=== PATIENT | female | born 1995 | race Caucasian/White ===

== ENCOUNTER 2018-12-06 22:39 | Inpatient (IN) | payer BC ==
[~2018-12-06] VITALS: Ht 157.5 cm; Wt 74.1 kg
--- NOTE | 2018-12-06 22:25 | NUR ---
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 PT TO ROOM, ORIENTED TO ROOM, CHANGED INTO GOWN. EFMX2 APPLIED, AMNIOSWAB PERFORMED AND NEGATIVE, SVE PERFORMED, VS OBTAINED.
[2018-12-06 22:45] VITALS: BP 119/67; PULSE 83; TEMP 98.4
[2018-12-06] MEDS ORDERED: TYLENOL 325MG325 MG PO (22:50)
[2018-12-06 23:22] VITALS: BP 119/67; PULSE 83; TEMP 98.4
--- NOTE | 2018-12-06 23:22 | NUR ---
MONITORING DC'D SO PT COULD AMBULATE THE UNIT.
[2018-12-07] VITALS (35 sets, daily range): BP systolic 93–149; BP diastolic 52–112; PULSE 72–131; TEMP 98–98.3
[2018-12-07 00:29] LABS: BASO % 0.2 % (0.0-2.0); GRAN # 10.7 (1.4-6.5); GRAN % 85.8 % (42.2-75.2); HEMOGLOBIN 11.6 g/dl (12.5-16.0); LYMPH # 0.9 (1.2-3.4); LYMPH % 7.5 % (20.0-51.0); MEAN CELL VOLUME 84 fl (80.0-100.0); MEAN CORPUSCULAR HEMOGLOBIN 28 pg (27.0-31.0); MEAN CORPUSCULAR HGB CONC 33 g/dl (33.0-37.0); MEAN PLATELET VOLUME 13.1 fl (7.4-10.4); MONO # 0.7 (0.1-0.6); MONO % 5.8 % (1.7-9.3); PLATELET COUNT 138 K/mm3 (130-400); REDCELL DISTRIBUTION WIDTH-CV 13.2 % (11.5-14.5)
[2018-12-07 00:31] LABS: HEMATOCRIT 35.2 % (37.0-47.0)
--- NOTE | 2018-12-07 00:45 | NUR ---
0036- Ana DOWNEY CRNA IN ROOM FOR EPIDURAL PLACEMENT 0037- PT SITTING AT SIDE OF BED FOR EPIDURAL PLACEMENT, PULSE OX AND BLOOD PRESSURE CUFF ON. TIME OUT PERFORMED. 0045- TEST DOSE GIVEN BY Ana DOWNEY CRNA. PT TOLERATED WELL. 0050- PT REPOSITIONED IN SEMIFOWLERS.
--- NOTE | 2018-12-07 05:47 | NUR ---
0540- SVE OF COMPLETE/+2 0547- PT PUSHING WITH THIS NURSE.
--- NOTE | 2018-12-07 06:26 | NUR ---
PRERNA RN IN ROOM TO ASSUME CARE OF PT. SPENCER FAJARDO BY THIS NURSE, 900MLS CLEAR YELLOW URINE OUT.
--- NOTE | 2018-12-07 09:33 | NUR ---
0635 CARE ASSUMED FROM Kayden SETH RN. PT PUSHING WELL WITH EACH CONTRACTION AND GOOD DESCENT NOTED. 0640 DR GONZÁLES CALLED AND ASKED TO COME FOR DELIVERY. 0650 PRESENTING PART CROWNS NICELY WITH PUSH AND INSTRUCTED TO STOP UNTIL MD ARRIVES.
--- NOTE | 2018-12-07 09:49 | NUR ---
0700 DR GONZÁLES ARRIVES AND INTO ROOM. 0705 PT SET UP FOR DELIVERY. 0708 PUSHING AGAINWITH EACH CONTRACTION.
--- NOTE | 2018-12-07 09:56 | NUR ---
0715 CONTINUES TO PUSH WELL WITH GOOD PROGRESS NOTED. 0724 DELIVERY OF MALE WITH SPONT RESP NOTED. PLACED SKIN TO SKIN WITH MOM AND DRIED WITH WARM BLANKETS. CORD NOTED TO HAVE TRUE KNOT. PT AND SPOUSE EXTEMELY HAPPY. 0727 REPAIR OF 2ND DEGREE LAC STARTED BY . PT DESIRES DELAYED CORD CLAMPING. 0729 CORD DOUBLE CLAMPED AND FOB CUTS CORD, NO PULSING NOTED PRIOR TO CLAMPING. 0730 DELIVERY OF INTACT PLACENTA AND FUNDAL MASSAGE STARTED. PT DESIRES NO PITOCIN UNLESS NECESSARY. 0745 REPAIR OF LAC COMPLETED, ICE PACK TO PERINEUM AND BED TOGETHER. REPOSITIONED IN BED WITH SPOUSE ASSISTANCE. INFANT REMAINS ON MOMS CHEST AND IS STABLE. 0800 MOTRIN 800 MG PO TO PT FOR CONTROL OF POST PAIN. FUNDAL MASSAGE WITH RETURN OF SEVERAL LARGE CLOTS. PT INFORMED IF THAT HAPPENS AGAIN PITCON WOULD BE INDICATED. VERBALIZES UNDERSTANDING AND ACCEPTANCE OF USE. 0815 FUNDAL MASSAGE WITH MOD TO LARGE AMOUNT OF FREE FLOW NOTED. 0817 PITOCIN STARTED VIA PUMP AND PROTOCOL WITH PT ACCEPTANCE AND UNDERSTANDING. PT REQUESTS LITTLE NECESSARY SO STARTED AND 150m/MIN. 0830 FUNDUS FIRM AND NO LUIS FLOW NOTED WITH EXAM. WILL CONTINUE PITOCIN RATE AT 150mU/MIN. AT BREAST. 0845 FUNDUS FIRM AND NO FREE FLOW NOTED. ASSISTED WITH INFANT LATCH ON RT SIDE. STRONG SUCK NOTED. PT VERY TIRED AND SPOUSE ASSISTING WITH POSITIONING AND FEEDING.
--- NOTE | 2018-12-07 10:13 | NUR ---
9727 PT AND SPOUSE STILL HOLDING INFANT AND IS NURSING AT INTERVALS. FAMILY IN TO SEE PT.
[2018-12-08 05:00] VITALS: BP 93/55; PULSE 79; TEMP 98.4
[2018-12-08 09:00] VITALS: BP 100/62; PULSE 82; TEMP 98.6
== END 2018-12-08 12:55 | disposition home or self-care (01) | DRG 807 ==
LOC: LDRO 22:39 → LDR 12-07 00:10 → OB 12-07 11:40
PROVIDERS: ADMIT Student in an Organized Health Care Education/Training Program
PROC: 10E0XZZ Delivery of Products of Conception, External Approach (ICD-10-PCS; principal; 2018-12-07)
PROC: 0KQM0ZZ Repair Perineum Muscle, Open Approach (ICD-10-PCS; 2018-12-07)
DX: O70.1 Second degree perineal laceration during delivery (principal); Z37.0 Single live birth; Z3A.38 38 weeks gestation of pregnancy; O69.2XX0 Labor and delivery complicated by other cord entanglement, with compression, not applicable or unspecified; O76 Abnormality in fetal heart rate and rhythm complicating labor and delivery; O34.43 Maternal care for other abnormalities of cervix, third trimester; N81.2 Incomplete uterovaginal prolapse; Z28.21 Immunization not carried out because of patient refusal; O75.89 Other specified complications of labor and delivery
CPT/HCPCS: J2590; J7120

== ENCOUNTER 2021-11-28 10:49 | Emergency (ER) | payer SELFPAY ==
[~2021-11-28] VITALS: Ht 157.5 cm; Wt 61.4 kg
[~2021-11-28 10:49] MED LIST: TYLENOL 325MG325 MG PO
[2021-11-28 11:26] LABS: BASO % 0.4 % (0.0-2.0); EOS % 0.1 % (0.0-4.0); GRAN # 9.7 K/mm3 (1.4-6.5); GRAN % 89.9 % (42.2-75.2); HEMATOCRIT 42.9 % (37.0-47.0); HEMOGLOBIN 15.3 g/dl (12.5-16.0); LYMPH # 0.5 K/mm3 (1.2-3.4); LYMPH % 4.8 % (20.0-51.0); MEAN CELL VOLUME 85 fl (80.0-100.0); MEAN CORPUSCULAR HEMOGLOBIN 30 pg (27-31); MEAN CORPUSCULAR HGB CONC 36 g/dl (33.0-37.0); MEAN PLATELET VOLUME 11.9 fl (7.4-10.4); MONO # 0.5 K/mm3 (0.1-0.6); MONO % 4.5 % (1.7-9.3); PLATELET COUNT 211 K/mm3 (130-400); RED BLOOD COUNT 5.04 M/mm3 (4.10-5.30); REDCELL DISTRIBUTION WIDTH-CV 12.4 % (11.5-14.5)
[2021-11-28 11:40] LABS: ALBUMIN 4.5 gm/dL (3.5-5.0); BILIRUBIN,TOTAL 0.5 mg/dL (0.2-1.2); C-REACTIVE PROTEIN 0.27 mg/dL (0.00-0.50); CALCIUM 9.1 mg/dL (8.4-10.2); CREATININE, serum 0.84 mg/dL (0.57-1.11); POTASSIUM 3.9 mmol/L (3.5-4.5)
[2021-11-28 12:15] LABS: COLLECTION METHOD CLEAN CATCH
[2021-11-28 12:25] LABS: PH 8 (5-8); SQUAMOUS EPITHELIAL 0-2 /hpf (0-10); URINE APPEARANCE Clear (CLEAR/HAZY); URINE BACTERIA Rare /hpf (NONE SEEN); URINE BILIRUBIN Negative (NEGATIVE); URINE BLOOD Negative (NEGATIVE); URINE COLOR Straw (YELLOW); URINE GLUCOSE Negative (NEGATIVE); URINE KETONE Negative (NEGATIVE); URINE LEUKOCYTE ESTERASE Negative (NEGATIVE); URINE NITRATE Negative (NEGATIVE); URINE PROTEIN(semi-quant) Negative (NEGATIVE); URINE RBC 0-2 /hpf (0-2); URINE UROBILINOGEN Negative (NEGATIVE)
[2021-11-28] MEDS ORDERED: ZOFRAN ODT4 MG PO (13:51)
[2021-11-28 13:59] VITALS: BP 102/66; PULSE 84; TEMP 98
== END 2021-11-28 14:14 | disposition home or self-care (01) ==
LOC: COL.ER 10:49
PROVIDERS: Physician Assistant
DX: K52.9 Noninfective gastroenteritis and colitis, unspecified (principal); Z90.49 Acquired absence of other specified parts of digestive tract; Z32.02 Encounter for pregnancy test, result negative
CPT/HCPCS: J1630; J1885; J2405; J7030; Q9967